=== PATIENT | male | born 1945 | race Caucasian/White ===

== ENCOUNTER 2016-10-15 11:53 | Inpatient (IN) | payer MEDICARE ==
--- NOTE | ~2016-10-15 | IDS ---
Interim Discharge Summary [facility] [address] [place]. [address] NAME: IZAIAH HUITRON : 45 STATUS : ADM IN PAT#: [id number] AGE: 71 ADM/REG DATE : 10/15/16 MR#: [id number] REPORT SERV DATE: 10/25/16 DICTATED BY: SUZY VASQUEZ DATE: 10/25/16 REPORT STATUS : Draft TRANSCRIBED BY: MODL DATE: 10/25/16 ADMISSION DATE: 10/15/2016 DISCHARGE DATE: This interim discharge is for the service date 10/20/2016 to 10/25/2016. PROBLEM LIST: 1. Miv-TF-vinrkzpku MT with a cardiogenic shock. The patient has been to ICU after he was in the shock and got out of the unit. 2. Acute kidney injury on chronic kidney disease, more likely cardiorenal syndrome, and numbers have worsened, however yesterday, was first day, we were able to pull some extra fluid out with the diuretics. 3. MDS which is stable. 4. Shock liver. Ammonia level and also LFTs are slowly getting better. 5. Debility. CONSULTANTS: 1. Dr. Hdz. 2. Dr. Olson. 3. Critical Care Management. HISTORY OF PRESENT ILLNESS: This is a 71-year-old male patient, who initially came to the hospital on October 15 with chest pain. Please see dictated H and P done by Dr. Montgomery. The patient was admitted to the hospital with angina with MDS at [facility]. While the patient was admitted to the hospital in [facility], the patient developed shock and transferred to the unit. At that time, he was treated for the cardiogenic shock. He has been followed by buffing wheel raker and cancer researcher and show design supervisor. After he was stabilized from the shock treatment, he was transferred out of the unit. At that time, cardiac catheterization was interested to be the next level of care; however, his renal function has been deteriorated through this hospitalization. Renal consult was done. Mainly after the shock, his diuretics have been discontinued and he has a lot of volumes and all the treatment for shock; however, unfortunately we were not able to get rid of this extra fluid and not reaching the euvolemic yet. So, the cancer researcher has been working hard to increase the diuretics. So finally for the last 48 hours, we were able to remove some fluid out; however, his kidney function has been deteriorated and his started to feel symptoms of it. He feels very weak and not able to move around anymore although he refused the rehab stay as a part of possible plan of discharge. Dr. Wolfe is cutting down his Bumex a little bit more today to see his ATN is recovering or not. Meanwhile I noticed his functional status has been deteriorated significantly through this hospitalization. I mentioned to him regarding the discharge plan as a rehabilitation center which he refused. I talked to the again today and probably discharge option will be rehab if he is Interim Discharge Summary [facility] [address] [place]. [address] NAME: IZAIAH HUITRON : 45 STATUS : ADM IN [facility]#: [id number] AGE: 71 ADM/REG DATE : 10/15/16 MR#: [id number] REPORT SERV DATE: 10/25/16 DICTATED BY: SUZY VASQUEZ DATE: 10/25/16 REPORT STATUS : Draft TRANSCRIBED BY: MODL DATE: 10/25/16 willing to try otherwise probably hospice at home will be appropriate. In order to establish the goal of care together here in the hospital, I will like to consult Dr. Horn for that reason. EKL/MODL Suzy Vasquez M.D. / [id number] CC: Rae Hays M.D.
--- NOTE | ~2016-10-15 | CN ---
Consultation Report [facility] [address] [place]. [address] NAME: IZAIAH HUITRON : 45 STATUS : ADM IN PAT#: [id number] AGE: 71 ADM/REG DATE : 10/15/16 MR#: [id number] REPORT SERV DATE: 10/20/16 DICTATED BY: GEOVANNA OLSON DATE: 10/20/16 REPORT STATUS : Draft TRANSCRIBED BY: MODL DATE: 10/20/16 DATE OF CONSULTATION: REASON FOR CONSULTATION: Chronic kidney disease with plan for cardiac catheterization. HISTORY OF PRESENT ILLNESS: This is a very pleasant 71-year-old male patient, admitted to the Hospitalist Service, Dr. Izaiah Montgomery, with a complaint of angina and chest pressure. He has myeloproliferative disorder, following in the outpatient setting by Dr. Howard Armenta and is followed by primary care for his primary care needs by Dr. Gant. He has often has difficulty with low hemoglobin, which has in the past precipitated angina-like symptomatology prompting his evaluation here. Dr. Rodríguez was asked to evaluate him with his known cardiac test, and considering that his hemoglobin has remained relatively stable, I felt that his diagnostic workup should proceed with possible cardiac catheterization. However, given his chronic kidney disease and propensity for low blood pressure readings, we are asked to evaluate the patient and provide assistance in care and chronic workup prior to cardiac catheterization. The patient is sitting at bedside this afternoon. His is present during evaluation. He denies current chest pain. No active nausea, vomiting, or diarrhea. He is currently on a heparin drip. PAST MEDICAL HISTORY: Positive for chronic systolic congestive heart failure with last known ejection fraction of 25% with a chronically elevated troponin, moderate aortic stenosis with valvular area of 1.23. 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 Howard Armenta, with increasing antibodies to transfusions. HOME MEDICATIONS: Include the following: Acyclovir 400 mg p.o. b.i.d., amlodipine 10 mg daily, ASA 81 mg daily, atorvastatin 20 mg p.o. at bedtime, vitamin B6 Super Complex one daily, carvedilol 12.5 mg p.o. daily, vitamin D 1000 units p.o. daily, Plavix 75 mg p.o. daily, Nexium 40 mg daily, fluoxetine 10 mg daily, furosemide 40 mg p.o. daily, gabapentin 300 mg p.o. daily, Hydrea 1000 mg p.o. daily, hydroxyzine 25 mg p.o. b.i.d. p.r.n., Lantus 16 units subcu at bedtime, Imdur 120 mg daily, lactulose 30 mL p.o. daily, levothyroxine 150 mcg p.o. daily, losartan 50 mg p.o. daily, Reglan 10 mg prior to meals and at bedtime, multivitamins one tab daily, nitroglycerin sublingually p.r.n., Zofran 4-8 mg q.6 hours p.r.n., potassium sustained release 20 mEq p.o. daily, Ranexa 500 mg p.o. b.i.d., Januvia 100 mg p.o. daily, tramadol 50 mg p.o. q.6 hours p.r.n. with pain. ALLERGIES: HE LISTS ALLERGIES TO MORPHINE AND DILTIAZEM. SOCIAL HISTORY: He is and lives here locally with his . They have 2 children. Remote tobacco. No EtOH. No illicit drugs. Consultation Report [address] [address] NAME: IZAIAH HUITRON : 45 STATUS : ADM IN [facility]#: [id number] AGE: 71 ADM/REG DATE : 10/15/16 MR#: [id number] REPORT SERV DATE: 10/20/16 DICTATED BY: GEOVANNA OLSON DATE: 10/20/16 REPORT STATUS : Draft TRANSCRIBED BY: MODFarrukh DATE: 10/20/16 FAMILY HISTORY: He does have a history of renal failure in his mother, complications of diabetes for his brother, and father's was of unknown cause. REVIEW OF SYSTEMS: Completed, please see HPI for pertinent details. PHYSICAL EXAMINATION: VITAL SIGNS: Blood pressure 92/51, temperature 96.7, respiratory rate is 16, heart rate 75 beats per minute and regular, paced. He is 100% on room air. GENERAL: He is a chronically ill-appearing male patient, in no acute distress, sitting on the bedside during evaluation. HEENT: Normocephalic and atraumatic. Normal ocular movements. No scleral icterus. No conjunctival pallor is appreciated. NECK: Supple without thyromegaly. No JVD or mass. CHEST: Shows positive S1 and S2 with a paced rhythm. No rubs or gallops. LUNGS: Diminished, but clear to auscultation throughout. Normal expansion and effort bilaterally. GI: Positive bowel sounds in all four quadrants. No appreciable mass or tenderness. : Deferred. NEUROLOGIC: Appears to be grossly intact. Nonfocal. SKIN: Warm, dry, and intact to visualized surfaces. No rash, lesions, or ecchymosis. PSYCHIATRIC: He is of appropriate mood and affect. LABORATORY DATA: Pertinent laboratories and imaging to this evaluation are as follows: CBC shows a white blood cell count of 4.0, RBC 3.71, hemoglobin 9.5, hematocrit 27.2. ProTime is 16.9, INR 1.4. Comprehensive metabolic panel shows sodium 132, potassium 4.7, chloride 97, CO2 of 23, BUN 33, creatinine 1.91, calcium 8.2, magnesium 1.8. ALT 177, AST 101. IMPRESSION AND PLAN: This is a pleasant 71-year-old male patient with multiple medical issues including chronic kidney disease stage 3, diabetes mellitus, recurrent angina, recurrent anemia requiring transfusion secondary to myelodysplastic syndrome and noted recurrent issues with hypotension. Baseline creatinine appears to be 1.7 to 1.9 across 2017. He is at 1.91 today. He is not in his medical history. We see workup for chronic kidney disease via a renal subspecialty. He follows primarily with his primary care provider for most of his medical needs and is seen in consultation by Dr. Howard Armenta for myeloproliferative disorder and Dr. Gallo Rodríguez for his cardiac needs. We will undertake the following in preparation for cardiac catheterization. As he has not had previous workup for chronic kidney disease or renal ultrasound, undertake urine studies and evaluate any urinary protein excretion. Workup for chronic kidney disease will include renal ultrasound as above, urine studies, and quantify any urinary protein excretion. His risk for cardiac catheterization had been stratified to the patient as well as his and they are accepting of possible complications that may be induced by contrast-induced nephropathy. In effort to provide him a buffer in preparation for cardiac catheterization, we will provide gentle IV hydration overnight, p.m., 10/21/2016 with plans for cardiac catheterization tentatively on 10/22/2016. Placing parameters on his beta-ale may Consultation Report [facility] [address] [place]. [address] NAME: IZAIAH HUITRON : 45 STATUS : ADM IN PAT#: [id number] AGE: 71 ADM/REG DATE : 10/15/16 MR#: [id number] REPORT SERV DATE: 10/20/16 DICTATED BY: GEOVANNA OLSON DATE: 10/20/16 REPORT STATUS : Draft TRANSCRIBED BY: CHINO DATE: 10/20/16 benefit from modification of his antihypertensive program as he has had some difficulty with hypotension and increasing his blood pressure would provide assistance in perfusion that may help his renal function stability. However, given his chronic medical problems and his known history, we will defer any decision regarding that to Cardiology and in tandem with primary care. Further modification of treatment plan may be made based on the clinical presentation of the patient's laboratory results and further consultation with renal attending. We appreciate consultation. We are glad to follow this patient with you. DICTATED BY: Kelvin Todd NP JR/CHINO Geovanna Olson M.D. / [id number] CC: MD Mando Gardner M.D.
--- NOTE | ~2016-10-15 | DS ---
Discharge Summary [facility] [address] [facility] [place]. [address] NAME: IZAIAH HUITRON : 45 STATUS : DIS IN PAT#: [id number] AGE: 71 ADM/REG DATE : 10/15/16 MR#: [id number] REPORT SERV DATE: 10/28/16 DICTATED BY: JR. MESA WILLIAM JOHN DATE: 10/27/16 REPORT STATUS : Draft TRANSCRIBED BY: MODL DATE: 10/27/16 ADMISSION DATE: 10/15/2016 DISCHARGE DATE: 10/27/2016 SUMMARY DATE OF : 10/27/2016. TIME OF : 1650 hours. CAUSE OF : 1. Xqj-WZ-ggqzauwsn myocardial infarction. 2. Acute kidney injury. 3. Chronic kidney disease. 4. Cardiorenal syndrome. 5. Myelodysplastic syndrome. OPERATIONS/PROCEDURES AND TREATMENTS: Include: 1. Chest x-ray done, 10/15/2016, which showed stable cardiomegaly with prior bypass and pacing device. There was resolved right pleural effusion and right basilar consolidation. 2. KUB done, 10/15/2016, which showed no acute findings. 3. Chest x-ray done, 10/17/2016, which showed developing pleural effusion in the right base. 4. Renal ultrasound done, 10/20/2016, showed minimal hydronephrotic changes in the upper pole of the left kidney with nonobstructing stones in both kidneys. The aorta and vena cava were normal. Urinary bladder was normal. 5. Portable chest x-ray done, 10/21/2016, showed continued cardiomegaly without acute change. 6. PA and lateral chest x-ray done 10/24/2016, showed improved aeration of the lungs with decreased right basilar atelectasis. There is bibasilar pleural fluid on the right greater than left. 7. Bypass changes and a PICC line pacemaker in place. 8. Echocardiogram done 10/20/2016 showed severely dilated left ventricle with severe global left ventricular systolic function with ejection fraction of 20%. Left atrium is mildly dilated. The aortic valve was heavily calcified; however, full Doppler interrogation was not performed. DISCHARGE MEDICATIONS: Not applicable. HOSPITAL COURSE: The patient was a 71-year-old male, who presented to the emergency room on 10/15/2016 with complaint of angina pectoris secondary to myeloproliferative disorder. The patient had been having angina-like pain when he exerts himself. Please see Dr. Montgomery's history and physical for complete details. The patient was seen in consultation by Dr. Hdz of Cardiology, who recommended observation with serial EKGs and cardiac enzymes. The patient developed shock-like symptoms while in the early part of the hospitalization and was Discharge Summary [address] [address] NAME: IZAIAH HUITRON : 45 STATUS : DIS IN PAT#: [id number] AGE: 71 ADM/REG DATE : 10/15/16 MR#: [id number] REPORT SERV DATE: 10/28/16 DICTATED BY: JR. MESA WILLIAM JOHN DATE: 10/27/16 REPORT STATUS : Draft TRANSCRIBED BY: CHINO DATE: 10/27/16 transferred to the intensive care unit for cardiogenic shock. He was felt to have a non-ST- elevation myocardial infarction and was being considered for cardiac catheterization; however, this was deferred due to declining renal function. Nephrology saw the patient, increased diuretics and the patient was eventually moved to the floor. The family elected hospice care. Care was withdrawn and the patient on 10/27/2016. This discharge summary took greater than 30 minutes for patient encounter, coordination of care, and documentation. DICTATED BY: Gallo Mesa Jr, MD WRobertF/CHINO Gallo Mesa Jr, MD / [id number] CC: Gallo Mesa Jr, MD Paul Lawrence, M.D.
--- NOTE | ~2016-10-15 | CN ---
Consultation Report [facility] [address] [place]. [address] NAME: IZAIAH HUITRON : 45 STATUS : ADM IN PAT#: [id number] AGE: 71 ADM/REG DATE : 10/15/16 MR#: [id number] REPORT SERV DATE: 10/15/16 DICTATED BY: YOVANNY HDZ JR. DATE: 10/15/16 REPORT STATUS : Draft TRANSCRIBED BY: MODL DATE: 10/15/16 DATE OF CONSULTATION: EMERGENCY ROOM PHYSICIAN: Dr. Tomlin. ONCOLOGY: Dr. Armenta. REASON FOR CONSULTATION: Regarding elevated troponin 0.21 with on and off chest discomfort and worsening anemia, requiring transfusion. HISTORY OF PRESENT ILLNESS: A 71-year-old white male, sent by Dr. Armenta from his office to the emergency room with a hemoglobin of 8.6 with macrocytic indices for blood transfusion and chest discomfort. He began having some chest discomfort on Tuesday, which recurred on Tuesday and then this afternoon began having some more discomfort. Troponin 0.21 on first determination. He has had multiple admissions with small troponin rises in the past. His EKG shows atrial pacing with perhaps more prominent repolarization changes, but no ST elevation is present. There is a minimal change in EKG compared to previous tracing. He is currently getting 1 unit of packed cells. He is currently not having any chest discomfort after previous treatment. He is getting Dilaudid, low-dose. Morphine makes him nauseated. He has a severe ischemic cardiomyopathy with 25% ejection fraction with an aortic valve stenosis at 1.0 sq cm. He has had a redo CABG as well as PCI procedures. He has chronic kidney disease, diabetes mellitus. Dr. Armenta treats him for a myelodysplastic syndrome. His white count is 3200, hemoglobin 8.6, platelet count is normal at 262,000. ALLERGIES AND HOME MEDICATIONS: List reviewed. SOCIAL HISTORY: Supportive family. Nonsmoker. No illicit drugs. FAMILY HISTORY: Noncontributory. PHYSICAL EXAMINATION: VITAL SIGNS: Blood pressure 120/75, pulse is 75 and paced. HEENT: No xanthelasma. NECK: No JVD at 30 degrees, no thyromegaly, no carotid bruit. LUNGS: Clear to auscultation and percussion. CARDIAC: Aortic stenosis, murmur with radiation to carotids. No third sound is appreciated. ABD: Soft, nontender, no hepatosplenomegaly, no mass. EXT: Without edema or pulse deficit. MS: Back without spine or costovertebral angle tenderness. Consultation Report [facility] [id number] [place]. [address] NAME: IZAIAH HUITRON : 45 STATUS : ADM IN PAT#: [id number] AGE: 71 ADM/REG DATE : 10/15/16 MR#: [id number] REPORT SERV DATE: 10/15/16 DICTATED BY: YOVANNY HDZ JR. DATE: 10/15/16 REPORT STATUS : Draft TRANSCRIBED BY: MODFarrukh DATE: 10/15/16 NEURO: Symmetric findings. DISCUSSION: Recurrent anemia requiring transfusion with concurrent angina at rest. Improving with medical treatment, including 1 unit of packed cells. He has rather end-stage ischemic cardiomyopathy. He has had redo CABG as well as PCI procedures. He has an ejection fraction of 25% in a valve area with aortic stenosis of 1 sq cm. SUGGESTIONS: Serial cardiac enzymes and EKGs will be obtained. Hopefully with improved hemoglobin, his cardiac status will stabilize. If he has continued chest pain despite transfusion and optimal medical treatment, he will have to go back to the biology laboratory assistant to see if there is another lesion that could be stented. Thank you for this consultation. Dr. Carty and group to follow with you this weekend, Dr. Rodríguez back on Tuesday. KALEIGH/CHINO Yovanny Hdz Jr., M.D. / [id number] CC: MD Mando Grover II, M.D.
--- NOTE | ~2016-10-15 | HP ---
History And Physical [address] [place] [address] NAME: IZAIAH HUITRON : 45 STATUS : ADM IN PAT#: [id number] AGE: 71 ADM/REG DATE : 10/15/16 MR#: [id number] REPORT SERV DATE: 10/15/16 DICTATED BY: IZAIAH MCCRARY DATE: 10/15/16 REPORT STATUS : Draft TRANSCRIBED BY: MODL DATE: 10/15/16 DATE OF ADMISSION: 10/15/2016 ATTENDING PHYSICIAN: Dr. Ramirez. EXAMINING PHYSICIAN: Dr. Mccrary. REASON FOR ADMISSION: Angina pectoris secondary to anemia secondary to myeloproliferative disorder, gastroparesis, nausea, and vomiting secondary to diabetes type 1. HISTORY: This is a 71-year-old white male, who has had diabetes since age 21. He is insulin dependent and assumed to be type 1. He does have gastroparesis. He has chronic nausea and vomiting. He has lost weight over 50 pounds. His Reglan has not caused significant side affects yet, however, he does not take it regularly. He had some nausea and vomiting this morning and vomits almost every morning. He sees Dr. Mando Gant for primary care. No one has yet suggested a J-tube feeding with PEG drainage yet though I mentioned this to him as well. He has been having chest pain like angina pectoris, a hard pressure-like pain, when he exerts itself with associated shortness of breath. Dr. Tomlin saw the patient prior to myself being called and he has already consult Dr. Hdz who recommended observing, watching troponins, and trending what to do. Dr. Armenta has already asked for crossmatch of blood because it takes a long time to crossmatch. The patient has received over 46 transfusions over time and he has significant antibodies to be screened against. The patient is admitted for angina pectoris. He claims his target hemoglobin rate is around 10 and that when it drops to 8, he does have angina pectoris. His heart attacks have occurred with hemoglobins of 8.3. Today his hemoglobin is 8.6. PAST MEDICAL HISTORY: 1. Chronic systolic congestive heart failure, ejection fraction 25%. He has a chronically elevated troponin higher than 0.12 on previous. He has moderate aortic stenosis with valve area of 1.23. 2. Diabetes listed as type 2 though he says insulin dependent since age 21, may be a type 1.5. 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 Coronary artery disease with drug-eluting stent placed 1 year ago, 10/15/2015; iron overload due to multiple transfusions and myelodysplastic syndrome with myelofibrosis followed by Dr. Armenta with increasing antibodies to the transfusions. HOME MEDICATIONS: His home medications are as follows: 1. Acyclovir 400 mg p.o. b.i.d. 2. Amlodipine 10 mg p.o. daily. 3. Aspirin 81 mg p.o. daily. 4. Atorvastatin 20 mg p.o. daily. 5. Vitamin B super complex 1 a day. History And Physical [address] [address] NAME: IZAIAH HUITRON : 45 STATUS : ADM IN [facility]#: [id number] AGE: 71 ADM/REG DATE : 10/15/16 MR#: [id number] REPORT SERV DATE: 10/15/16 DICTATED BY: IZAIAH MCCRARY DATE: 10/15/16 REPORT STATUS : Draft TRANSCRIBED BY: CHINO DATE: 10/15/16 6. Carvedilol 12.5 mg p.o. daily. 7. Vitamin D 1000 units p.o. daily. 8. Plavix 75 mg p.o. daily. 9. Nexium 40 mg p.o. daily. 10.Fluoxetine 10 mg p.o. daily. 11.Furosemide 40 mg p.o. daily. 12.Gabapentin 300 mg p.o. daily. 13.Hydrea 1000 mg p.o. daily. 14.Hydroxyzine 25 mg p.o. b.i.d. p.r.n. 15.Lantus 16 units at bedtime, not sliding-scale insulin. 16.Imdur 120 mg p.o. daily. 17.Lactulose 30 mL p.o. daily. 18.Levothyroxine 150 mcg p.o. daily. 19.Losartan 50 mg p.o. daily. 20.Metoclopramide 10 mg before meals and at bedtime. 21.Multivitamins 1 daily. 22.Nitroglycerin sublingually p.r.n. 23.Ondansetron 4 to 8 mg q.6 hours p.r.n. 24.Potassium SR 20 mg p.o. daily. 25.Ranexa 500 mg p.o. b.i.d. 26.Januvia 100 mg p.o. daily. 27.Tramadol 50 mg p.o. q.6 hours p.r.n. pain. ALLERGIES: MORPHINE CAUSES NAUSEA, VOMITING, AND DILTIAZEM CAUSES LIVER AND KIDNEY FAILURE. SOCIAL HISTORY: He is . Lives with his in [place]. They attend [facility]. They have 2 children, alive and well. He smoked cigarettes remotely, does not take any alcohol or drugs. 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 FAMILY HISTORY: His mother of heart disease and history of kidney failure at age 62. His father at age 61 of unknown causes. He has a brother who of complications from diabetes as well. REVIEW OF SYSTEMS: He is having the chest pain as the reason for his visit today as described above. He does have some shortness of breath, dyspnea on exertion. He always has nausea every day due to gastroparesis and this seems to be worse recently and he has not been taking his Reglan regularly. He has had no swelling in his lower extremities. He has had no melena, hematemesis, fits, seizures, convulsions, and unilateral weakness. He has had no stroke. No eye pain, headache, stiff neck, hemoptysis, hematuria, fever, chills, or night sweats. The remainder of the review of systems is negative except as outlined above. PHYSICAL EXAMINATION: VITAL SIGNS: His blood pressure was 127/45 when he came to the emergency room with a heart History And Physical [address] [address] NAME: ELANAIZAIAH YEVGENIY : 45 STATUS : ADM IN [facility]#: [id number] AGE: 71 ADM/REG DATE : 10/15/16 MR#: [id number] REPORT SERV DATE: 10/15/16 DICTATED BY: IZAIAH MCCRARY DATE: 10/15/16 REPORT STATUS : Draft TRANSCRIBED BY: MODL DATE: 10/15/16 rate of 61, respiratory rate 18, and oxygen saturation 100%. HEENT: EOMI. Sclerae clear. Conjunctivae pale.NECK: No bruit without any JVD. CHEST: Clear to A and P. HEART: Regular S1, S2. There is a 3/6 systolic murmur along the left anterior axillary line. A 2/6 systolic murmur on the upper right parasternal border. ABDOMEN: Soft, slightly distended, nontender but resistant to deep palpation. No mass was felt. EXTREMITIES: Have no edema. No distal pulses are palpable. NEUROLOGIC: No DTRs elicitable in the knees and ankles. His custodian manager is equal and symmetric. Coordination intact. The patient is alert and oriented to person, place, and time. His speech is cogent and goal directed. His strength is symmetric and equal bilaterally as is sensory in the upper extremities. LYMPHATICS: There is no adenopathy palpable. SKIN: Without rash, ecchymosis, or bruising. LABORATORY DATA: His blood type is O negative. Antibody screen is positive with anti-C, anti-D, and anti-E antibodies at least. His troponin was 0.21. This was previously reported to [place] as 0.12. This is identical to what it was on previous admission. His creatinine is 1.59 with a BUN of 19, sodium 140, potassium 4.3, and CO2 is 37. Creatinine clearance estimated at 43 mL/minute. Glucose was 240. Calcium 8.7, magnesium 1.8. His hemoglobin was 8.6 with hematocrit of 25.6, MCV is 108.5, white count 3.2, and platelets 262,000. His INR was 1.5. PT was 17.8. KUB was done showing no acute finding. The chest x-ray shows stable cardiomegaly with prior CABG and pacing device, resolving right pleural effusion and consolidation seen on 06/30/2016. EKG shows sinus rhythm, abnormal EKG. Diffuse nonspecific ST and T-wave change with downsloping ST segments in the lateral precordial leads, lead V3 through 6 and parallel changes and 1 in AVF. Old EKGs obtained and similar changes less exaggerated were noted on a prior tracing on 05/23/2016. ASSESSMENT: 1. Angina pectoris secondary to nonocclusive coronary artery disease, small vessel disease. Ranexa may be increased to 1000 mg b.i.d. if tolerable. Transfusion may help as well. He claims he needs a hemoglobin of 10. If we can crossmatch him and give the transfusion, this would be reasonable. 2. Myeloproliferative disorder with persistent transfusion requirement. 3. Gastroparesis. 4. 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 5. Nausea. 6. Chronically elevated troponin. 7. Moderate aortic stenosis. 8. Coronary artery disease with recent drug-eluting stent. 9. Iron overload from previous transfusion. 10.Myeloproliferative disorder, previous bone marrow biopsy showing a hypercellular History And Physical [address] [address] NAME: IZAIAH HUITRON : 45 STATUS : ADM IN [facility]#: [id number] AGE: 71 ADM/REG DATE : 10/15/16 MR#: [id number] REPORT SERV DATE: 10/15/16 DICTATED BY: IZAIAH MCCRARY DATE: 10/15/16 REPORT STATUS : Draft TRANSCRIBED BY: MODL DATE: 10/15/16 marrow. PLAN: Transfuse if possible. Increase Ranexa to 1000 mg twice a day. Spread Coreg out to b.i.d. and Dr. Hdz is going to see for Dr. Rodríguez as he had spoken with Dr. Tomlin previously to see further measures may be taken for comfort. The patient may be offered a GJ tube for decompression and for feeding as he has had significant weight loss. I am going to start with IV Reglan and allow him to eat now to see if this helps some of the nausea and vomiting from the gastroparesis. We discussed end-of-life issues with the patient and the patient does not want to be resuscitated in the event of cardiac arrest, therefore we will enter a DNR per his request. CATRACHO/CHINO Izaiah Mccarry M.D. / [id number] CC: MD Mando Grover II, M.D. James Hoback Jr., M.D. William Warren, M.D. Derek W Holland, M.D. Colleen Schmitt, M.D.
[~2016-10-15 11:53] MED LIST: ANTIBIOTIC; ASAB PO; ASABAYER PO; AT25 PO; AUG500 PO; AUG875 PO; AUGMENTIN PO; B COMPLEX IM/SC; B-125000 MCG; B-125000 MCG SC; B121000P SC; BACTRIM PO; BIAXIN500 MG PO; BRILINTA90 MG PO; CIP5 PO; COGENTIN PO; COREG6 PO; COSOPT OPH; COZAAR100 MG PO; DROXIA200 MG PO; DSS PO; ERY-TAB250 MG PO; EYE OPH; FLONASE NAS; HALF81 PO; HUMALOG SC; HYDREA PO; IMDUR120 PO; IMDUR30 PO; JAKAFI15 MG PO; JANUVIA100 MG PO; JANUVIA50 PO; KDUR10 PO; KDUR20 PO; KLOR-CON M2020 MEQ PO; L40 PO; LANTUS FOR SC; LANTUS SC; LANTUSCART SC; LEVAQUIN750 MG PO; LEVITRA20 MG PO; LEVOTHYROXIN137 MCG PO; LIPITOR10 PO; LIPITOR40 PO; LOTEMAX 0.5% OPH; MIRALAXPKT PO; MULTIPLE VIT PO; MULTIVIT/MIN PO; NASACORTAQ NAS; NEOMYCIN TOP; NEULASTA SC; NEUR300 PO; NEXIUM40 PO; NITROSTAT0.4 MG SL; NORV10 PO; NORV5 PO; NOVOLOG SC; NOVOPEN SC; NTG150 SL; PLAVIX PO; POLY TOP; PRAVAC PO; PRAVACHOL40 MG PO; PREDFORTE OPH; PRIN10 PO; PRIN20 PO; PROTONIX PO; PROZ10 PO; RAN500 PO; REG PO; REG5 PO; SINGULAIR1 PO; SYN.15 PO; SYNTHROID137 MCG PO; ULTRAM50 PO; VIDAZA100 MG IJ; VIDAZA100 MG IV; VIT D; VITAMIN B-121000 MC1 IM; VITAMIN B-121000 MC1 SL; VITAMIN B-122500 MCG PO; VITAMIN B-122500 MCG SL; VITAMIN D1000 UNI1 PO; VITAMIN D31000 UNIT PO; ZESTRIL20 MG PO; ZOFRAN4 PO; ZOFRAN8 PO; ZOVIRAX400 MG PO; ZYRTEC ALLGY10 MG PO; [UNRECOGNIZED DRUG - OTHER] TOP; [UNRECOGNIZED DRUG - REMARK] IV/IM
[2016-10-15 12:06] LABS: ER CBC TAT 0 Hrs 08 Mins; HEMATOCRIT 25.6 % (40.0-51.0); HEMOGLOBIN 8.6 g/dL (13.6-17.8); MANUAL DIFF YES %; MEAN CORPUS HGB CONC 33.6 g/dL (32.0-36.0); MEAN CORPUSCULAR HEMOGLOB 36.4 pg (26.0-34.0); MEAN CORPUSCULAR VOLUME 108.5 fL (80-100); MEAN PLATELET VOLUME 13.2 fL (9.2-13.0); NUCLEATED RED BLOOD CELLS 3.5 /100WBC (0-0); PLATELET COUNT 262 10/3/uL (150-400); RBC DISTRIBUTION WIDTH 16.9 % (12.0-16.0); RED CELL COUNT 2.36 10/6/uL (4.7-6.1); WHITE BLOOD CELLS 3.2 10/3/uL (4.5-10.5)
[2016-10-15 12:09] LABS: INTERNATIONAL NORMAL RATI 1.5 UNITS (-); PROTIME (NOT ORD) 17.8 SEC (12.0-14.5)
[2016-10-15 12:10] LABS: PARTIAL THROMBO TIME 37.2 SEC (22.5-37.2)
[2016-10-15] MEDS ORDERED: ZOVIRAX400 MG PO (12:15)
[2016-10-15] MEDS ORDERED: NORV10 PO (12:16)
[2016-10-15] MEDS ORDERED: LIPITOR20 PO (12:18)
[2016-10-15] MEDS ORDERED: ASAB PO (12:18)
[2016-10-15] MEDS ORDERED: SUPER B COMP PO (12:19)
[2016-10-15] MEDS ORDERED: COREG12 PO (12:19)
[2016-10-15 12:20] LABS: CALCIUM, SERUM 8.7 MG/DL (8.5-10.4); CHLORIDE, SERUM 102 MMOL/L (96-112); CREATININE 1.59 MG/DL (0.70-1.30); GFR AFRICAN AMERICAN 50 ML/MIN (>=60); GFR NON AFRICAN AMERICAN 43 ML/MIN (>=60); POTASSIUM, SERUM 4.3 MMOL/L (3.5-5.3); SODIUM, SERUM 140 MMOL/L (135-148)
[2016-10-15] MEDS ORDERED: PROZ10 PO (12:20)
[2016-10-15] MEDS ORDERED: L40 PO (12:20)
[2016-10-15] MEDS ORDERED: NEUR300 PO (12:21)
[2016-10-15] MEDS ORDERED: HUMALOG SC (12:22)
[2016-10-15] MEDS ORDERED: HYDREA PO (12:23)
[2016-10-15] MEDS ORDERED: AT25 PO (12:24)
[2016-10-15 12:25] LABS: BAND NEUTROPHILS 4 %; BUN (BLOOD UREA NITROGEN) 19 MG/DL (6-23); CO2 (CARBON DIOXIDE) 37 MMOL/L (24-34); ER DIFF TAT 0 Hrs 27 Mins; GLUCOSE, SERUM 241 MG/DL (60-99); IMMATURE MONONUCLEAR 2 % (0); LYMPHOCYTES 43 %; LYMPHOCYTES ABSOLUTE (CALC) 1.54 10/3/uL (0.67-4.30); MONOCYTES 16 %; MONOCYTES ABSOLUTE (CALC) 0.35 10/3/uL (0.21-1.20); NEUTROPHILS ABSOLUTE (CALC) 1.25 10/3/uL (2.02-8.40); PLATELET ESTIMATE ADQ (ADEQUATE); SEGMENTED NEUTROPHIL (0) 35 %; STOMATOCYTES 1+ (3-10/OIF) (0-2/OIF); TOTAL NUCLEATED CELLS 100
[2016-10-15 12:26] LABS: ELLIPTOCYTES 1+ (3-10/OIF) (0-2/OIF); POLYCHROMASIA 1+ (2-5/OIF) (0-1/OIF); SCHISTOCYTES OCC (0-2/OIF)
[2016-10-15 12:27] LABS: CHEST PAIN PROFILE TAT 0 Hrs 29 Mins; TROPONIN I 0.21 NG/ML (<0.05)
[2016-10-15] MEDS ORDERED: IMDUR120 PO (12:28)
[2016-10-15] MEDS ORDERED: JANUVIA100 MG PO (12:28)
[2016-10-15] MEDS ORDERED: ENULOSE PO (12:29)
[2016-10-15] MEDS ORDERED: LANTUS SC (12:30)
[2016-10-15] MEDS ORDERED: LEVOTHYROXIN150 MCG PO (12:31)
[2016-10-15] MEDS ORDERED: COZ50 PO (12:31)
[2016-10-15] MEDS ORDERED: MULTIVITAMI1 PO (12:32)
[2016-10-15] MEDS ORDERED: NITROSTAT0.4 MG SL (12:32)
[2016-10-15] MEDS ORDERED: NEXIUM40 PO (12:32)
[2016-10-15] MEDS ORDERED: PLAVIX PO (12:33)
[2016-10-15] MEDS ORDERED: ZOFRAN8 PO (12:33)
[2016-10-15] MEDS ORDERED: KDUR20 PO (12:34)
[2016-10-15] MEDS ORDERED: RAN500 PO (12:35)
[2016-10-15] MEDS ORDERED: REG PO (12:36)
[2016-10-15] MEDS ORDERED: ULTRAM50 PO (12:36)
[2016-10-15] MEDS ORDERED: VITAMIN D1000 UNI1 PO (12:37)
[2016-10-15 22:27] LABS: HEMATOCRIT 31.6 % (40.0-51.0)
[2016-10-16 06:05] LABS: HEMOGLOBIN 9.5 g/dL (13.6-17.8); MEAN CORPUS HGB CONC 33.6 g/dL (32.0-36.0); MEAN CORPUSCULAR HEMOGLOB 34.4 pg (26.0-34.0); NUCLEATED RED BLOOD CELLS 4.6 /100WBC (0-0); PLATELET COUNT 242 10/3/uL (150-400); RED CELL COUNT 2.76 10/6/uL (4.7-6.1); WHITE BLOOD CELLS 3.4 10/3/uL (4.5-10.5)
[2016-10-16 06:06] LABS: HEMATOCRIT 28.3 % (40.0-51.0); MANUAL DIFF YES %; MEAN CORPUSCULAR VOLUME 102.5 fL (80-100); RBC DISTRIBUTION WIDTH 22.3 % (12.0-16.0)
[2016-10-16 06:21] LABS: BUN (BLOOD UREA NITROGEN) 22 MG/DL (6-23); CHLORIDE, SERUM 103 MMOL/L (96-112); CREATININE 1.43 MG/DL (0.70-1.30); GFR AFRICAN AMERICAN 57 ML/MIN (>=60); GFR NON AFRICAN AMERICAN 49 ML/MIN (>=60); GLUCOSE, SERUM 258 MG/DL (60-99); POTASSIUM, SERUM 4.4 MMOL/L (3.5-5.3); SODIUM, SERUM 140 MMOL/L (135-148)
[2016-10-16 06:22] LABS: CALCIUM, SERUM 7.5 MG/DL (8.5-10.4); CO2 (CARBON DIOXIDE) 31 MMOL/L (24-34); TROPONIN I 6.57 NG/ML (<0.05)
[2016-10-16 06:50] LABS: BAND NEUTROPHILS 1 %; IMMATURE MONONUCLEAR 1 % (0); LYMPHOCYTES 45 %; LYMPHOCYTES ABSOLUTE (CALC) 1.53 10/3/uL (0.67-4.30); MACROCYTES 1+ (5-10/OIF) (0-5/OIF); MONOCYTES 17 %; MONOCYTES ABSOLUTE (CALC) 0.58 10/3/uL (0.21-1.20); NEUTROPHILS ABSOLUTE (CALC) 1.26 10/3/uL (2.02-8.40); PLATELET ESTIMATE ADQ (ADEQUATE); SEGMENTED NEUTROPHIL (0) 36 %; TOTAL NUCLEATED CELLS 100
[2016-10-16 06:51] LABS: SCHISTOCYTES OCC (0-2/OIF)
[2016-10-16 09:39] LABS: CK-MB 6.3 NG/ML
[2016-10-16 09:40] LABS: CKMB INDEX (NOT ORD) 7.3; CPK 86 U/L (0-200)
[2016-10-16 10:54] LABS: INTERNATIONAL NORMAL RATI 1.4 UNITS (-); PROTIME (NOT ORD) 17.3 SEC (12.0-14.5)
[2016-10-16 10:55] LABS: PARTIAL THROMBO TIME 36.8 SEC (22.5-37.2)
[2016-10-17 07:09] LABS: ALBUMIN 3.1 G/DL (3.5-5.0); BUN (BLOOD UREA NITROGEN) 23 MG/DL (6-23); CALCIUM, SERUM 8.3 MG/DL (8.5-10.4); CHLORIDE, SERUM 99 MMOL/L (96-112); CO2 (CARBON DIOXIDE) 29 MMOL/L (24-34); CREATININE 1.58 MG/DL (0.70-1.30); GFR AFRICAN AMERICAN 50 ML/MIN (>=60); GFR NON AFRICAN AMERICAN 43 ML/MIN (>=60); POTASSIUM, SERUM 4.1 MMOL/L (3.5-5.3); SGOT(AST) 187 U/L (5-40); SGPT(ALT) 170 U/L (5-65); SODIUM, SERUM 137 MMOL/L (135-148); TOTAL BILIRUBIN 2.4 MG/DL (0-1.2); TOTAL PROTEIN 5.8 G/DL (6.0-8.5)
[2016-10-17 07:10] LABS: A/G RATIO 1.1 (0.7-1.9); ALKALINE PHOSPHATASE 299 U/L (45-117); GLOBULIN 2.7 G/DL (2.5-4.1); GLUCOSE, SERUM 83 MG/DL (60-99)
[2016-10-17 07:17] LABS: HEMATOCRIT 27.1 % (40.0-51.0); HEMOGLOBIN 9.6 g/dL (13.6-17.8); MEAN CORPUSCULAR HEMOGLOB 34.9 pg (26.0-34.0); NUCLEATED RED BLOOD CELLS 7.4 /100WBC (0-0); PLATELET COUNT 249 10/3/uL (150-400); RBC DISTRIBUTION WIDTH 22.1 % (12.0-16.0); RED CELL COUNT 2.75 10/6/uL (4.7-6.1)
[2016-10-17 07:18] LABS: MANUAL DIFF YES %; MEAN CORPUS HGB CONC 35.4 g/dL (32.0-36.0); MEAN CORPUSCULAR VOLUME 98.5 fL (80-100)
[2016-10-17 12:26] LABS: BAND NEUTROPHILS 3 %; BASOPHILS 1 %; BASOPHILS ABSOLUTE (CALC) 0.04 10/3/uL (0.0-0.16); IMMATURE MONONUCLEAR 2 % (0); LYMPHOCYTES 39 %; LYMPHOCYTES ABSOLUTE (CALC) 1.56 10/3/uL (0.67-4.30); MACROCYTES 1+ (5-10/OIF) (0-5/OIF); MICROCYTES 1+ (5-10/OIF) (0-5/OIF); MONOCYTES 19 %; MONOCYTES ABSOLUTE (CALC) 0.76 10/3/uL (0.21-1.20); NEUTROPHILS ABSOLUTE (CALC) 1.56 10/3/uL (2.02-8.40); PLATELET ESTIMATE ADQ (ADEQUATE); POLYCHROMASIA 1+ (2-5/OIF) (0-1/OIF); SEGMENTED NEUTROPHIL (0) 36 %; TEARDROP SHAPED RBCS OCC (0-2/OIF); TOTAL NUCLEATED CELLS 100
[2016-10-17 12:27] LABS: ELLIPTOCYTES 1+ (3-10/OIF) (0-2/OIF); HELMET CELLS OCC (0-2/OIF); POIKILOCYTOSIS 1+ (5-10/OIF) (0-5/OIF); SCHISTOCYTES OCC (0-2/OIF); TOXIC GRANULATION SLT; VACUOLATED NEUTROPHILES OCC
[2016-10-17 14:38] LABS: TROPONIN I 2.92 NG/ML (<0.05)
[2016-10-17 15:46] LABS: A/G RATIO 1.1 (0.7-1.9); ALBUMIN 3.1 G/DL (3.5-5.0); BUN (BLOOD UREA NITROGEN) 26 MG/DL (6-23); CALCIUM, SERUM 8.2 MG/DL (8.5-10.4); CHLORIDE, SERUM 99 MMOL/L (96-112); CREATININE 1.82 MG/DL (0.70-1.30); GFR AFRICAN AMERICAN 42 ML/MIN (>=60); GFR NON AFRICAN AMERICAN 37 ML/MIN (>=60); GLOBULIN 2.9 G/DL (2.5-4.1); POTASSIUM, SERUM 4.6 MMOL/L (3.5-5.3); SGOT(AST) 405 U/L (5-40); SGPT(ALT) 311 U/L (5-65); SODIUM, SERUM 136 MMOL/L (135-148)
[2016-10-17 15:47] LABS: ALKALINE PHOSPHATASE 384 U/L (45-117); CO2 (CARBON DIOXIDE) 24 MMOL/L (24-34); GLUCOSE, SERUM 156 MG/DL (60-99); TOTAL BILIRUBIN 3.1 MG/DL (0-1.2)
[2016-10-17 18:04] LABS: HEMATOCRIT 28.3 % (40.0-51.0); HEMOGLOBIN 9.8 g/dL (13.6-17.8); MEAN CORPUS HGB CONC 34.6 g/dL (32.0-36.0); MEAN CORPUSCULAR HEMOGLOB 35.1 pg (26.0-34.0); MEAN CORPUSCULAR VOLUME 101.4 fL (80-100); NUCLEATED RED BLOOD CELLS 7.4 /100WBC (0-0); PLATELET COUNT 256 10/3/uL (150-400); RBC DISTRIBUTION WIDTH 22.3 % (12.0-16.0); RED CELL COUNT 2.79 10/6/uL (4.7-6.1); WHITE BLOOD CELLS 3.9 10/3/uL (4.5-10.5)
[2016-10-17 18:05] LABS: MANUAL DIFF YES %
[2016-10-17 18:26] LABS: BAND NEUTROPHILS 2 %; BASOPHILS 2 %; BASOPHILS ABSOLUTE (CALC) 0.08 10/3/uL (0.0-0.16); BURR CELLS 1+ (3-10/OIF) (0-2/OIF); ELLIPTOCYTES 1+ (3-10/OIF) (0-2/OIF); IMMATURE MONONUCLEAR 3 % (0); LYMPHOCYTES 53 %; LYMPHOCYTES ABSOLUTE (CALC) 2.07 10/3/uL (0.67-4.30); NEUTROPHILS ABSOLUTE (CALC) 1.64 10/3/uL (2.02-8.40); PLATELET ESTIMATE ADQ (ADEQUATE); SEGMENTED NEUTROPHIL (0) 40 %; TEARDROP SHAPED RBCS OCC (0-2/OIF); TOTAL NUCLEATED CELLS 100
[2016-10-17 18:27] LABS: GIANT PLATELET RARE; REACTIVE LYMPHS FEW (3-5%) (0-5%)
[2016-10-17 22:17] LABS: ASCORBIC ACID (UR NOT ORDER) NEG (NEG); BILIRUBIN, URINE NEGATIVE (NEG); KETONE, URINE NEGATIVE (NEG); LEUKOCYTE ESTERASE(NOT OR NEG (NEG); WBC (NOT ORDERED) (RFLEX) 1 (0-5)
[2016-10-18 04:51] LABS: INTERNATIONAL NORMAL RATI 1.5 UNITS (-)
[2016-10-18 04:52] LABS: PARTIAL THROMBO TIME 87.8 SEC (22.5-37.2)
[2016-10-18 05:00] LABS: HEMATOCRIT 26.7 % (40.0-51.0); HEMOGLOBIN 9.3 g/dL (13.6-17.8); MANUAL DIFF YES %; MEAN CORPUS HGB CONC 34.8 g/dL (32.0-36.0); MEAN CORPUSCULAR HEMOGLOB 35.8 pg (26.0-34.0); MEAN CORPUSCULAR VOLUME 102.7 fL (80-100); NUCLEATED RED BLOOD CELLS 6.2 /100WBC (0-0); PLATELET COUNT 264 10/3/uL (150-400); RBC DISTRIBUTION WIDTH 20.2 % (12.0-16.0); WHITE BLOOD CELLS 3.6 10/3/uL (4.5-10.5)
[2016-10-18 05:03] LABS: BUN (BLOOD UREA NITROGEN) 29 MG/DL (6-23); CALCIUM, SERUM 8.4 MG/DL (8.5-10.4); CHLORIDE, SERUM 100 MMOL/L (96-112); CREATININE 1.95 MG/DL (0.70-1.30); GFR AFRICAN AMERICAN 39 ML/MIN (>=60); GFR NON AFRICAN AMERICAN 34 ML/MIN (>=60); GLUCOSE, SERUM 162 MG/DL (60-99); POTASSIUM, SERUM 4.1 MMOL/L (3.5-5.3); SODIUM, SERUM 130 MMOL/L (135-148)
[2016-10-18 05:04] LABS: CHOL/HDL RATIO(NOT ORDER) 1.7 (0-5); CHOLESTEROL < 50 MG/DL (< 200); CO2 (CARBON DIOXIDE) 29 MMOL/L (24-34); HDL CHOLESTEROL 30 MG/DL (> 39); LDL CHOLESTEROL 11.99999 MG/DL (< 130); NON-HDL CHOLESTEROL 20 MG/DL (< 160); TRIGLYCERIDE 41 MG/DL (< 150)
[2016-10-18 05:36] LABS: ANISOCYTOSIS 1+ (5-10/OIF) (0-5/OIF); GIANT PLATELET FEW; IMMATURE MONONUCLEAR 7 % (0); LYMPHOCYTES 44 %; LYMPHOCYTES ABSOLUTE (CALC) 1.58 10/3/uL (0.67-4.30); MONOCYTES 3 %; MONOCYTES ABSOLUTE (CALC) 0.11 10/3/uL (0.21-1.20); NEUTROPHILS ABSOLUTE (CALC) 1.66 10/3/uL (2.02-8.40); PLATELET ESTIMATE ADQ (ADEQUATE); SEGMENTED NEUTROPHIL (0) 46 %; TOTAL NUCLEATED CELLS 100
[2016-10-18 05:37] LABS: ELLIPTOCYTES 1+ (3-10/OIF) (0-2/OIF); MACROCYTES 1+ (5-10/OIF) (0-5/OIF); OVALOCYTES 1+ (3-10/OIF) (0-2/OIF); POLYCHROMASIA 1+ (2-5/OIF) (0-1/OIF)
[2016-10-18 06:31] LABS: ALBUMIN 3.3 G/DL (3.5-5.0); SGOT(AST) 293 U/L (5-40); SGPT(ALT) 323 U/L (5-65); TOTAL BILIRUBIN 3.5 MG/DL (0-1.2); TOTAL PROTEIN 6.2 G/DL (6.0-8.5)
[2016-10-18 06:32] LABS: ALKALINE PHOSPHATASE 409 U/L (45-117); INDIRECT BILIRUBIN(NOT ORDER) 1.5 MG/DL (0.1-0.9)
[2016-10-19 05:07] LABS: ALBUMIN 3.1 G/DL (3.5-5.0); BUN (BLOOD UREA NITROGEN) 31 MG/DL (6-23); CALCIUM, SERUM 8.5 MG/DL (8.5-10.4); CHLORIDE, SERUM 98 MMOL/L (96-112); CO2 (CARBON DIOXIDE) 29 MMOL/L (24-34); CREATININE 1.81 MG/DL (0.70-1.30); GFR AFRICAN AMERICAN 43 ML/MIN (>=60); GFR NON AFRICAN AMERICAN 37 ML/MIN (>=60); GLUCOSE, SERUM 140 MG/DL (60-99); HEMOGLOBIN 9.3 g/dL (13.6-17.8); MEAN CORPUS HGB CONC 34.4 g/dL (32.0-36.0); MEAN CORPUSCULAR HEMOGLOB 34.3 pg (26.0-34.0); NUCLEATED RED BLOOD CELLS 7.7 /100WBC (0-0); PHOSPHORUS, SERUM 3.6 MG/DL (2.5-4.5); PLATELET COUNT 292 10/3/uL (150-400); POTASSIUM, SERUM 4.5 MMOL/L (3.5-5.3); RBC DISTRIBUTION WIDTH 22.1 % (12.0-16.0); RED CELL COUNT 2.71 10/6/uL (4.7-6.1); SGOT(AST) 147 U/L (5-40); SGPT(ALT) 225 U/L (5-65); SODIUM, SERUM 134 MMOL/L (135-148); TOTAL BILIRUBIN 3.6 MG/DL (0-1.2); TOTAL PROTEIN 6.2 G/DL (6.0-8.5); WHITE BLOOD CELLS 3.7 10/3/uL (4.5-10.5)
[2016-10-19 05:09] LABS: ALKALINE PHOSPHATASE 384 U/L (45-117); DIRECT BILIRUBIN 2.2 MG/DL (0.0-0.4); INDIRECT BILIRUBIN(NOT ORDER) 1.4 MG/DL (0.1-0.9)
[2016-10-19 05:13] LABS: MANUAL DIFF YES %; MEAN CORPUSCULAR VOLUME 99.6 fL (80-100); PARTIAL THROMBO TIME 57.7 SEC (22.5-37.2)
[2016-10-19 05:45] LABS: BAND NEUTROPHILS 2 %; ELLIPTOCYTES 1+ (3-10/OIF) (0-2/OIF); GIANT PLATELET OCC; LYMPHOCYTES 40 %; LYMPHOCYTES ABSOLUTE (CALC) 1.48 10/3/uL (0.67-4.30); MONOCYTES 14 %; MONOCYTES ABSOLUTE (CALC) 0.52 10/3/uL (0.21-1.20); PLATELET ESTIMATE ADQ (ADEQUATE); POLYCHROMASIA 1+ (2-5/OIF) (0-1/OIF); SEGMENTED NEUTROPHIL (0) 44 %; SPHEROCYTES FEW (3-10/OIF); TOTAL NUCLEATED CELLS 100
[2016-10-20 04:23] LABS: INTERNATIONAL NORMAL RATI 1.4 UNITS (-); PROTIME (NOT ORD) 16.9 SEC (12.0-14.5)
[2016-10-20 04:24] LABS: PARTIAL THROMBO TIME 58.6 SEC (22.5-37.2)
[2016-10-20 04:26] LABS: HEMATOCRIT 27.2 % (40.0-51.0); HEMOGLOBIN 9.5 g/dL (13.6-17.8); MEAN CORPUS HGB CONC 34.9 g/dL (32.0-36.0); MEAN CORPUSCULAR HEMOGLOB 35.1 pg (26.0-34.0); MEAN CORPUSCULAR VOLUME 100.4 fL (80-100); NUCLEATED RED BLOOD CELLS 9.4 /100WBC (0-0); PLATELET COUNT 297 10/3/uL (150-400); RED CELL COUNT 2.71 10/6/uL (4.7-6.1)
[2016-10-20 04:27] LABS: MANUAL DIFF YES %
[2016-10-20 04:30] LABS: CREATININE 1.91 MG/DL (0.70-1.30); GFR AFRICAN AMERICAN 40 ML/MIN (>=60); GFR NON AFRICAN AMERICAN 34 ML/MIN (>=60); POTASSIUM, SERUM 4.7 MMOL/L (3.5-5.3); SGOT(AST) 101 U/L (5-40); SODIUM, SERUM 132 MMOL/L (135-148)
[2016-10-20 04:38] LABS: A/G RATIO 0.9 (0.7-1.9); ALBUMIN 3.1 G/DL (3.5-5.0); BUN (BLOOD UREA NITROGEN) 33 MG/DL (6-23); CALCIUM, SERUM 8.2 MG/DL (8.5-10.4); CHLORIDE, SERUM 97 MMOL/L (96-112); GLOBULIN 3.3 G/DL (2.5-4.1); PHOSPHORUS, SERUM 3.7 MG/DL (2.5-4.5); SGPT(ALT) 177 U/L (5-65); TOTAL PROTEIN 6.4 G/DL (6.0-8.5)
[2016-10-20 04:44] LABS: CHOL/HDL RATIO(NOT ORDER) 3.1 (0-5); CHOLESTEROL < 50 MG/DL (< 200); CO2 (CARBON DIOXIDE) 23 MMOL/L (24-34); GLUCOSE, SERUM 184 MG/DL (60-99); HDL CHOLESTEROL 16 MG/DL (> 39); NON-HDL CHOLESTEROL 34 MG/DL (< 160)
[2016-10-20 04:45] LABS: ALKALINE PHOSPHATASE 418 U/L (45-117); LDL CHOLESTEROL 18.99999 MG/DL (< 130); TRIGLYCERIDE 76 MG/DL (< 150)
[2016-10-20 04:52] LABS: BASOPHILS 2 %; BASOPHILS ABSOLUTE (CALC) 0.08 10/3/uL (0.0-0.16); LYMPHOCYTES 43 %; LYMPHOCYTES ABSOLUTE (CALC) 1.72 10/3/uL (0.67-4.30); MONOCYTES 14 %; MONOCYTES ABSOLUTE (CALC) 0.56 10/3/uL (0.21-1.20); NEUTROPHILS ABSOLUTE (CALC) 1.64 10/3/uL (2.02-8.40); SEGMENTED NEUTROPHIL (0) 41 %; TOTAL NUCLEATED CELLS 100
[2016-10-20 04:53] LABS: GIANT PLATELET FEW; MACROCYTES 1+ (5-10/OIF) (0-5/OIF); PLATELET ESTIMATE ADQ (ADEQUATE); POLYCHROMASIA 1+ (2-5/OIF) (0-1/OIF)
[2016-10-20 04:54] LABS: BURR CELLS 1+ (3-10/OIF) (0-2/OIF); ELLIPTOCYTES 1+ (3-10/OIF) (0-2/OIF); POIKILOCYTOSIS 1+ (5-10/OIF) (0-5/OIF)
[2016-10-20 19:25] LABS: UR PROTEIN/CREAT RATIO 0.29 (< 0.2)
[2016-10-21 02:12] LABS: ALBUMIN 3.1 G/DL (3.5-5.0); BUN (BLOOD UREA NITROGEN) 41 MG/DL (6-23); CALCIUM, SERUM 8.4 MG/DL (8.5-10.4); CHLORIDE, SERUM 97 MMOL/L (96-112); CO2 (CARBON DIOXIDE) 26 MMOL/L (24-34); CREATININE 2.16 MG/DL (0.70-1.30); GFR AFRICAN AMERICAN 34 ML/MIN (>=60); GFR NON AFRICAN AMERICAN 30 ML/MIN (>=60); GLUCOSE, SERUM 205 MG/DL (60-99); PHOSPHORUS, SERUM 4.4 MG/DL (2.5-4.5); POTASSIUM, SERUM 4.9 MMOL/L (3.5-5.3); SODIUM, SERUM 131 MMOL/L (135-148)
[2016-10-21 02:22] LABS: HEMATOCRIT 27.2 % (40.0-51.0); HEMOGLOBIN 9.2 g/dL (13.6-17.8); MEAN CORPUS HGB CONC 33.8 g/dL (32.0-36.0); MEAN CORPUSCULAR HEMOGLOB 33.8 pg (26.0-34.0); NUCLEATED RED BLOOD CELLS 7.5 /100WBC (0-0); PLATELET COUNT 312 10/3/uL (150-400); RED CELL COUNT 2.72 10/6/uL (4.7-6.1)
[2016-10-21 02:23] LABS: MANUAL DIFF YES %
[2016-10-21 03:10] LABS: BAND NEUTROPHILS 6 %; LYMPHOCYTES 36 %; METAMYELOCYTES 8 %; MONOCYTES 4 %; MYELOCYTES 6 %; PLATELET ESTIMATE ADQ (ADEQUATE); SEGMENTED NEUTROPHIL (0) 40 %; TOTAL NUCLEATED CELLS 100
[2016-10-21 03:11] LABS: ELLIPTOCYTES 1+ (3-10/OIF) (0-2/OIF); GIANT PLATELET RARE; POLYCHROMASIA 2+ (5-10/OIF) (0-1/OIF)
[2016-10-21 03:12] LABS: MICROCYTES 1+ (5-10/OIF) (0-5/OIF)
[2016-10-22 04:21] LABS: INTERNATIONAL NORMAL RATI 1.4 UNITS (-)
[2016-10-22 04:24] LABS: HEMATOCRIT 26.7 % (40.0-51.0); HEMOGLOBIN 9.2 g/dL (13.6-17.8); MEAN CORPUS HGB CONC 34.5 g/dL (32.0-36.0); MEAN CORPUSCULAR HEMOGLOB 34.2 pg (26.0-34.0); MEAN CORPUSCULAR VOLUME 99.3 fL (80-100); NUCLEATED RED BLOOD CELLS 11.4 /100WBC (0-0); PLATELET COUNT 347 10/3/uL (150-400); RED CELL COUNT 2.69 10/6/uL (4.7-6.1)
[2016-10-22 04:27] LABS: BUN (BLOOD UREA NITROGEN) 44 MG/DL (6-23); CALCIUM, SERUM 8.4 MG/DL (8.5-10.4); CHLORIDE, SERUM 94 MMOL/L (96-112); CHOL/HDL RATIO(NOT ORDER) 3.9 (0-5); CHOLESTEROL 55 MG/DL (< 200); CO2 (CARBON DIOXIDE) 27 MMOL/L (24-34); CREATININE 2.37 MG/DL (0.70-1.30); GFR AFRICAN AMERICAN 31 ML/MIN (>=60); GFR NON AFRICAN AMERICAN 27 ML/MIN (>=60); GLUCOSE, SERUM 197 MG/DL (60-99); HDL CHOLESTEROL 14 MG/DL (> 39); LDL CHOLESTEROL 25 MG/DL (< 130); NON-HDL CHOLESTEROL 41 MG/DL (< 160); POTASSIUM, SERUM 4.7 MMOL/L (3.5-5.3); SODIUM, SERUM 130 MMOL/L (135-148); TRIGLYCERIDE 82 MG/DL (< 150)
[2016-10-22 04:28] LABS: MANUAL DIFF YES %
[2016-10-22 04:58] LABS: BAND NEUTROPHILS 8 %; BASOPHILS 3 %; BASOPHILS ABSOLUTE (CALC) 0.18 10/3/uL (0.0-0.16); IMMATURE GRANS ABSOLUTE (CALC) 0.24 10/3/uL (0.0-0.11); LYMPHOCYTES 32 %; LYMPHOCYTES ABSOLUTE (CALC) 1.92 10/3/uL (0.67-4.30); METAMYELOCYTES 1 %; MONOCYTES 8 %; MONOCYTES ABSOLUTE (CALC) 0.48 10/3/uL (0.21-1.20); MYELOCYTES 3 %; NEUTROPHILS ABSOLUTE (CALC) 3.12 10/3/uL (2.02-8.40); SEGMENTED NEUTROPHIL (0) 44 %; TOTAL NUCLEATED CELLS 100
[2016-10-22 04:59] LABS: GIANT PLATELET FEW; IMMATURE MONONUCLEAR 1 % (0); PLATELET ESTIMATE ADQ (ADEQUATE)
[2016-10-22 05:00] LABS: ACANTHOCYTES OCC (0-2/OIF); HYPOCHROMIA 1+ (3-10/OIF) (0-2/OIF)
[2016-10-22 05:01] LABS: MACROCYTES 1+ (5-10/OIF) (0-5/OIF); MICROCYTES 1+ (5-10/OIF) (0-5/OIF)
[2016-10-23 05:06] LABS: HEMATOCRIT 27.1 % (40.0-51.0); HEMOGLOBIN 9.4 g/dL (13.6-17.8); MEAN CORPUS HGB CONC 34.7 g/dL (32.0-36.0); MEAN CORPUSCULAR HEMOGLOB 35.6 pg (26.0-34.0); NUCLEATED RED BLOOD CELLS 12.7 /100WBC (0-0); PLATELET COUNT 324 10/3/uL (150-400); RED CELL COUNT 2.64 10/6/uL (4.7-6.1)
[2016-10-23 05:11] LABS: MANUAL DIFF YES %; MEAN CORPUSCULAR VOLUME 102.7 fL (80-100)
[2016-10-23 05:24] LABS: ALBUMIN 3.2 G/DL (3.5-5.0); CALCIUM, SERUM 8.4 MG/DL (8.5-10.4); CHLORIDE, SERUM 92 MMOL/L (96-112); CO2 (CARBON DIOXIDE) 25 MMOL/L (24-34); CREATININE 2.78 MG/DL (0.70-1.30); GFR AFRICAN AMERICAN 25 ML/MIN (>=60); GFR NON AFRICAN AMERICAN 22 ML/MIN (>=60); GLUCOSE, SERUM 234 MG/DL (60-99); POTASSIUM, SERUM 5.1 MMOL/L (3.5-5.3); SODIUM, SERUM 129 MMOL/L (135-148)
[2016-10-23 05:25] LABS: BUN (BLOOD UREA NITROGEN) 54 MG/DL (6-23); PHOSPHORUS, SERUM 5.5 MG/DL (2.5-4.5)
[2016-10-23 06:14] LABS: ANISOCYTOSIS 1+ (5-10/OIF) (0-5/OIF); BAND NEUTROPHILS 2 %; EOSINOPHILS 1 %; EOSINOPHILS ABSOLUTE (CALC) 0.06 10/3/uL (0.0-0.53); IMMATURE MONONUCLEAR 2 % (0); LYMPHOCYTES 37 %; LYMPHOCYTES ABSOLUTE (CALC) 2.22 10/3/uL (0.67-4.30); MACROCYTES 1+ (5-10/OIF) (0-5/OIF); METAMYELOCYTES 4 %; MICROCYTES 1+ (5-10/OIF) (0-5/OIF); MONOCYTES 5 %; MYELOCYTES 1 %; PLATELET ESTIMATE ADQ (ADEQUATE); POLYCHROMASIA 1+ (2-5/OIF) (0-1/OIF); SEGMENTED NEUTROPHIL (0) 48 %; TOTAL NUCLEATED CELLS 100
[2016-10-23 06:15] LABS: ELLIPTOCYTES 1+ (3-10/OIF) (0-2/OIF); HELMET CELLS OCC (0-2/OIF); POIKILOCYTOSIS 1+ (5-10/OIF) (0-5/OIF)
[2016-10-24 05:16] LABS: HEMATOCRIT 26.8 % (40.0-51.0); HEMOGLOBIN 9.4 g/dL (13.6-17.8); MEAN CORPUS HGB CONC 35.1 g/dL (32.0-36.0); MEAN CORPUSCULAR HEMOGLOB 34.4 pg (26.0-34.0); NUCLEATED RED BLOOD CELLS 13.5 /100WBC (0-0); PLATELET COUNT 323 10/3/uL (150-400); RED CELL COUNT 2.73 10/6/uL (4.7-6.1); WHITE BLOOD CELLS 6.8 10/3/uL (4.5-10.5)
[2016-10-24 05:19] LABS: MANUAL DIFF YES %; MEAN CORPUSCULAR VOLUME 98.2 fL (80-100)
[2016-10-24 05:25] LABS: A/G RATIO 0.9 (0.7-1.9); ALBUMIN 3.1 G/DL (3.5-5.0); CALCIUM, SERUM 8.7 MG/DL (8.5-10.4); CHLORIDE, SERUM 93 MMOL/L (96-112); CO2 (CARBON DIOXIDE) 23 MMOL/L (24-34); CREATININE 2.98 MG/DL (0.70-1.30); GFR AFRICAN AMERICAN 23 ML/MIN (>=60); GFR NON AFRICAN AMERICAN 20 ML/MIN (>=60); GLOBULIN 3.4 G/DL (2.5-4.1); GLUCOSE, SERUM 235 MG/DL (60-99); PHOSPHORUS, SERUM 5.4 MG/DL (2.5-4.5); SGPT(ALT) 124 U/L (5-65); SODIUM, SERUM 128 MMOL/L (135-148); TOTAL PROTEIN 6.5 G/DL (6.0-8.5)
[2016-10-24 05:28] LABS: ALKALINE PHOSPHATASE 304 U/L (45-117); BUN (BLOOD UREA NITROGEN) 64 MG/DL (6-23); POTASSIUM, SERUM 4.8 MMOL/L (3.5-5.3); SGOT(AST) 80 U/L (5-40); TOTAL BILIRUBIN 3.2 MG/DL (0-1.2)
[2016-10-24 05:47] LABS: BAND NEUTROPHILS 5 %; BASOPHILS 1 %; BASOPHILS ABSOLUTE (CALC) 0.07 10/3/uL (0.0-0.16); IMMATURE GRANS ABSOLUTE (CALC) 0.48 10/3/uL (0.0-0.11); IMMATURE MONONUCLEAR 1 % (0); LYMPHOCYTES 28 %; METAMYELOCYTES 5 %; MONOCYTES 4 %; MONOCYTES ABSOLUTE (CALC) 0.27 10/3/uL (0.21-1.20); MYELOCYTES 2 %; NEUTROPHILS ABSOLUTE (CALC) 4.01 10/3/uL (2.02-8.40); PLATELET ESTIMATE ADQ (ADEQUATE); SEGMENTED NEUTROPHIL (0) 54 %; TOTAL NUCLEATED CELLS 100
[2016-10-24 05:48] LABS: ATYPICAL LYMPH OCC (0-2%) (0-5%); REACTIVE LYMPHS OCC (0-2%) (0-5%)
[2016-10-24 05:51] LABS: GIANT PLATELET OCC
[2016-10-25 05:31] LABS: HEMATOCRIT 28.8 % (40.0-51.0); HEMOGLOBIN 10.1 g/dL (13.6-17.8); MEAN CORPUS HGB CONC 35.1 g/dL (32.0-36.0); MEAN CORPUSCULAR HEMOGLOB 35.6 pg (26.0-34.0); PLATELET COUNT 347 10/3/uL (150-400); RBC DISTRIBUTION WIDTH 19.7 % (12.0-16.0); RED CELL COUNT 2.84 10/6/uL (4.7-6.1)
[2016-10-25 05:32] LABS: MANUAL DIFF YES %; MEAN CORPUSCULAR VOLUME 101.4 fL (80-100)
[2016-10-25 05:41] LABS: A/G RATIO 0.9 (0.7-1.9); ALBUMIN 3.1 G/DL (3.5-5.0); ALKALINE PHOSPHATASE 302 U/L (45-117); CALCIUM, SERUM 8.8 MG/DL (8.5-10.4); CHLORIDE, SERUM 91 MMOL/L (96-112); CO2 (CARBON DIOXIDE) 27 MMOL/L (24-34); CREATININE 3.21 MG/DL (0.70-1.30); GFR AFRICAN AMERICAN 21 ML/MIN (>=60); GFR NON AFRICAN AMERICAN 18 ML/MIN (>=60); GLOBULIN 3.5 G/DL (2.5-4.1); PHOSPHORUS, SERUM 5.3 MG/DL (2.5-4.5); POTASSIUM, SERUM 3.9 MMOL/L (3.5-5.3); SGOT(AST) 75 U/L (5-40); SGPT(ALT) 113 U/L (5-65); SODIUM, SERUM 130 MMOL/L (135-148); TOTAL BILIRUBIN 3.2 MG/DL (0-1.2); TOTAL PROTEIN 6.6 G/DL (6.0-8.5)
[2016-10-25 05:42] LABS: BUN (BLOOD UREA NITROGEN) 68 MG/DL (6-23); GLUCOSE, SERUM 152 MG/DL (60-99)
[2016-10-25 06:27] LABS: ANISOCYTOSIS 1+ (5-10/OIF) (0-5/OIF); BAND NEUTROPHILS 3 %; IMMATURE GRANS ABSOLUTE (CALC) 0.16 10/3/uL (0.0-0.11); LYMPHOCYTES 33 %; LYMPHOCYTES ABSOLUTE (CALC) 2.64 10/3/uL (0.67-4.30); METAMYELOCYTES 1 %; MONOCYTES 24 %; MONOCYTES ABSOLUTE (CALC) 1.92 10/3/uL (0.21-1.20); MYELOCYTES 1 %; NEUTROPHILS ABSOLUTE (CALC) 3.28 10/3/uL (2.02-8.40); PLATELET ESTIMATE ADQ (ADEQUATE); SEGMENTED NEUTROPHIL (0) 38 %; TOTAL NUCLEATED CELLS 100
[2016-10-25 06:28] LABS: MACROCYTES 1+ (5-10/OIF) (0-5/OIF); SCHISTOCYTES OCC (0-2/OIF)
[2016-10-26 04:59] LABS: HEMATOCRIT 27.1 % (40.0-51.0); HEMOGLOBIN 9.4 g/dL (13.6-17.8); MEAN CORPUS HGB CONC 34.7 g/dL (32.0-36.0); MEAN CORPUSCULAR HEMOGLOB 34.1 pg (26.0-34.0); NUCLEATED RED BLOOD CELLS 23.5 /100WBC (0-0); PLATELET COUNT 299 10/3/uL (150-400); RED CELL COUNT 2.76 10/6/uL (4.7-6.1); WHITE BLOOD CELLS 9.5 10/3/uL (4.5-10.5)
[2016-10-26 05:00] LABS: MANUAL DIFF YES %; MEAN CORPUSCULAR VOLUME 98.2 fL (80-100)
[2016-10-26 05:07] LABS: BUN (BLOOD UREA NITROGEN) 74 MG/DL (6-23); CALCIUM, SERUM 8.7 MG/DL (8.5-10.4); CHLORIDE, SERUM 91 MMOL/L (96-112); CO2 (CARBON DIOXIDE) 26 MMOL/L (24-34); CREATININE 3.69 MG/DL (0.70-1.30); GFR AFRICAN AMERICAN 18 ML/MIN (>=60); GFR NON AFRICAN AMERICAN 16 ML/MIN (>=60); GLUCOSE, SERUM 185 MG/DL (60-99); POTASSIUM, SERUM 4.3 MMOL/L (3.5-5.3); SODIUM, SERUM 129 MMOL/L (135-148)
[2016-10-26 05:17] LABS: BASOPHILS 1 %; LYMPHOCYTES 43 %; LYMPHOCYTES ABSOLUTE (CALC) 4.09 10/3/uL (0.67-4.30); MONOCYTES 17 %; MONOCYTES ABSOLUTE (CALC) 1.62 10/3/uL (0.21-1.20); NEUTROPHILS ABSOLUTE (CALC) 3.71 10/3/uL (2.02-8.40); PLATELET ESTIMATE ADQ (ADEQUATE); SEGMENTED NEUTROPHIL (0) 39 %; TOTAL NUCLEATED CELLS 100
[2016-10-26 05:18] LABS: ELLIPTOCYTES 1+ (3-10/OIF) (0-2/OIF); GIANT PLATELET FEW; POLYCHROMASIA 1+ (2-5/OIF) (0-1/OIF); SCHISTOCYTES OCC (0-2/OIF)
== END 2016-10-27 22:12 | disposition expired ==
LOC: ER 11:53 → 6NO 16:26 → CCU 10-17 15:09 → 5NO 10-19 19:07
PROVIDERS: Emergency Medicine; Internal Medicine; Internal Medicine Cardiovascular Disease; Internal Medicine Critical Care Medicine; Internal Medicine Hematology & Oncology; Internal Medicine Nephrology; Registered Nurse
PROC: 30233N1 Transfusion of Nonautologous Red Blood Cells into Peripheral Vein, Percutaneous Approach (ICD-10-PCS; principal; 2016-10-15)
PROC: 30233N1 Transfusion of Nonautologous Red Blood Cells into Peripheral Vein, Percutaneous Approach (ICD-10-PCS; 2016-10-15)
PROC: 02HV33Z Insertion of Infusion Device into Superior Vena Cava, Percutaneous Approach (ICD-10-PCS; 2016-10-17)
DX: I21.4 Non-ST elevation (NSTEMI) myocardial infarction (principal); I50.23 Acute on chronic systolic (congestive) heart failure; K72.00 Acute and subacute hepatic failure without coma; N17.0 Acute kidney failure with tubular necrosis; R57.0 Cardiogenic shock; N18.4 Chronic kidney disease, stage 4 (severe); E83.111 Hemochromatosis due to repeated red blood cell transfusions; C94.6 Myelodysplastic disease, not elsewhere classified; I13.0 Hypertensive heart and chronic kidney disease with heart failure and stage 1 through stage 4 chronic kidney disease, or unspecified chronic kidney disease; E10.22 Type 1 diabetes mellitus with diabetic chronic kidney disease; I25.119 Atherosclerotic heart disease of native coronary artery with unspecified angina pectoris; E10.43 Type 1 diabetes mellitus with diabetic autonomic (poly)neuropathy; K31.84 Gastroparesis; Z79.4 Long term (current) use of insulin; Z88.5 Allergy status to narcotic agent; Z88.8 Allergy status to other drugs, medicaments and biological substances; Z83.3 Family history of diabetes mellitus; Z87.891 Personal history of nicotine dependence; I25.5 Ischemic cardiomyopathy; Z95.1 Presence of aortocoronary bypass graft; Z95.5 Presence of coronary angioplasty implant and graft; Z66 Do not resuscitate; I35.0 Nonrheumatic aortic (valve) stenosis; Z51.5 Encounter for palliative care; D64.9 Anemia, unspecified
CPT/HCPCS: 36415; 36569; 71010; 71020; 74000; 76775; 80048; 80053; 80061; 80069; 80076; 81001; 82140; 82330; 82550; 82553; 82570; 82803; 82947; 82962; 83735; 84100; 84132; 84156; 84295; 84300; 84484; 85014; 85018; 85025; 85610; 85730; 86850; 86870; 86900; 86901; 86902; 86920; 86922; 87641; 93005; 93280; 96374; 97116-GP; 97162-GP; 99285; A9270-GY; C1751; C8924; J1170; J1205; J2405; J2765; P9016; P9045; Q9957